=== PATIENT | female | born 1940 | race Caucasian/White ===

== ENCOUNTER 2020-09-22 12:14 | Outpatient (CLI) | payer MEDICARE, SELFPAY ==
--- NOTE | 2020-09-22 13:23 | MM_ITS ---
WS: [id number] DIAGNOSTIC BILATERAL DIGITAL MAMMOGRAM WITH CAD LEFT breast ultrasound, limited. HISTORY: HX OF BREAST CA; LT BREAST ASYMMETRY COMPARISON: 10/12/2018, 09/11/2018, 09/08/2017 and 08/17/2016. TECHNIQUE: Bilateral craniocaudad, mediolateral oblique, and mediolateral views are submitted. Spot c ompression LEFT CC and MLO. Computer aided detection utilized. Breast composition: The breasts are heterogeneously dense, which may obscure small masses. Volume los s RIGHT breast with increased trabecular pattern and skin thickening from prior radiation. There are numerous dystrophic and coarse calcifications in the RIGHT breast. Area of architectural distortion i n the LEFT breast near 11-12 o'clock at a middle depth. The distortion appears slightly increased alt laverne there is no significant soft tissue mass identified. There are scattered asymmetries and calcif ications throughout the LEFT breast which overall probably not significantly changed. LEFT breast ultrasound, limited. Ultrasound at 1:00, 4 cm from the nipple demonstrates a hypoechoic mass with ill-defined borders clifford uring 1.0 x 1.2 x 1.3 cm. There is an additional vague hypodensity 12:00. This may be a benign lymph node. MM/[id number] IMPRESSION: BI-RADS: 4-Suspicious Finding-Biopsy Should Be Considered FOLLOW UP: Biopsy Recommended Ultrasound-guided biopsy recommended of the mass at 11:00 LEFT breast. This cor responds to the architectural distortion seen on the recent mammogram.
--- NOTE | 2020-09-26 09:11 | PC.NURSE ---
Called pt today to go over biopsy instructions. I told pt all pre bx instructions.check in is at 12, lab will draw a pt/inr if indicated to measure blood. We will make sure a female does her bx, no males in the room. During the procedure she will be awake and lying down. US will find the spot and then will insert a needle into her numb breast. The needle will take tissue samples. Those samples are send directly to pathology, which takes 5 days to result. I told pt her pcp will get her results within 5 days and to call her office after 5 days. I explained directions to get to the hospital several times. I also reassured the pt we will have everything in place for the biopsy, so there will be no mistakes made. I told her if she has any questions, please call me at the mammo number. Pt still seemed very aggitated, and said in a loud voice to Make sure you have your ducks in a row this time . I confirmed that we would, and asked if the pt had any more questions. Pt has no further needs/questions at this time. Scooter MCELROY
--- NOTE | 2020-09-26 09:39 | PC.NURSE ---
Called pt to let her know that Dr. Morris (male) will be doing her biopsy next week. She decided to go ahead and get the biopsy done. But the pt wants only females in the room aside from Dr Morris. US aware. Scooter MCELROY
== END 2020-09-22 12:15 | disposition home or self-care (01) ==
LOC: RADSHAW 12:21
PROVIDERS: Family Provider Family Medicine; PCP Family Medicine; Visit Provider Family Medicine
DX: R92.8 Other abnormal and inconclusive findings on diagnostic imaging of breast (principal); Z85.3 Personal history of malignant neoplasm of breast; N63.21 Unspecified lump in the left breast, upper outer quadrant
CPT/HCPCS: 76642; 77066

== ENCOUNTER 2020-10-15 12:32 | Outpatient (CLI) | payer MEDICARE, SELFPAY ==
--- NOTE | 2020-10-15 12:43 | US_ITS ---
WS: [id number] ULTRASOUND-GUIDED LEFT BREAST BIOPSY CLINICAL INFORMATION: L BREAST MASS COMPARISON: None. FINDINGS: The procedure including risks, benefits, and complications were discussed with the patient who agreed to proceed. Using sterile technique patient was prepped and draped in the usual sterile fashion. Aft er 1% lidocaine utilizing real-time ultrasound guidance 5 14-gauge cores were obtained of the left br east lesion at the 1 o'clock position. Subsequently a titanium clip was placed in the biopsy cavity. No immediate complications. PATHOLOGY DEMONSTRATES A. Breast, left mass, 1:00, biopsy: -Invasive ductal carcinoma. -Dickens Alegre grade 1 (score 3). -A 1.5 mm focus of atypical ductal hyperplasia, ductal carcinoma in situ cannot be ruled out. -Ancillary studies have been performed. US/[id number] IMPRESSION: 1. Uncomplicated ultrasound-guided left breast biopsy. 2. The pathology demonstrates invasive ductal carcinoma. See pathology report for further detail. BI-RADS: 6-Known Biopsy-Proven Malignancy FOLLOW UP: See Report RECOMMEND BREAST SURGERY AND ONCOLOGY CONSULTATION.
[2020-10-15 13:10] LABS: INR 1.05 (0.8-1.2)
[2020-10-23 13:26] LABS: Miscellaneous Test See Scanned Lab Rpt
== END 2020-10-15 12:33 | disposition home or self-care (01) ==
LOC: RAD 12:39 → LAB 12:41
PROVIDERS: PCP Family Medicine; Visit Provider Family Medicine
DX: C50.412 Malignant neoplasm of upper-outer quadrant of left female breast (principal)
CPT/HCPCS: 19083; 36415; 85610; 88305; 88361; 88367; 88374